=== PATIENT | male | born 1960 ===

== ENCOUNTER 2025-03-16 08:21 | Day surgery (SDC) | payer MEDICARE ==
[~2025-03-16 08:21] MED LIST: Metoclopramide 10 MG/2 ML SDV IV PRN
[2025-03-16] MEDS: Sodium Chloride 0.9% 1,000 ML IV SCH (09:57)
[2025-03-16] MEDS ORDERED: Propofol 500 MG/50 ML SDV ONE (10:45)
== END 2025-03-16 11:51 | disposition home or self-care (01) ==
LOC: LB.SDS 08:21
PROVIDERS: ATTEND Surgery
DX: D64.9 Anemia, unspecified (principal); K57.30 Diverticulosis of large intestine without perforation or abscess without bleeding; N40.0 Benign prostatic hyperplasia without lower urinary tract symptoms; Z79.899 Other long term (current) drug therapy
CPT/HCPCS: J2704; J7030